=== PATIENT | male | born 1935 | race Hispanic/Latino ===

== ENCOUNTER 2018-03-19 16:58 | Outpatient (CLI) | payer OTHER ==
[2018-03-19 17:25] LABS: POTASSIUM 4.1 mmol/L (3.6-5.2)
[2018-03-19 17:57] LABS: PLATELET COUNT 148 K/uL (142-355)
== END 2018-03-19 21:33 | disposition home or self-care (01) ==
LOC: LABW 16:58
PROVIDERS: Internal Medicine
DX: E11.9 Type 2 diabetes mellitus without complications (principal); I10 Essential (primary) hypertension
CPT/HCPCS: 36415; 80053; 85027

== ENCOUNTER 2021-10-11 10:28 | Observation (INO) | payer OTHER ==
[2021-10-11] VITALS (8 sets, daily range): BP systolic 103–141; BP diastolic 55–80; TEMP 97.6–98.2; Ht 185.4 cm; Wt 84.2 kg
[~2021-10-11] VITALS: Ht 185.4 cm; Wt 84.2 kg
[2021-10-11 11:02] LABS: PLATELET COUNT 130 K/uL (142-355)
[2021-10-11 11:24] LABS: POTASSIUM 4.3 mmol/L (3.6-5.2)
[2021-10-11 11:33] LABS: PARTIAL THROMBOPLASTIN TIME 21.4 SECONDS (24.5-33.6)
[2021-10-11] MEDS ORDERED: CLOPIDOGREL75 MG PO (15:55)
[2021-10-11] MEDS ORDERED: SPIRONOLACT25 MG PO (15:56)
[2021-10-11] MEDS ORDERED: LEVO0.1T6 PO (15:56)
[2021-10-11] MEDS ORDERED: CLON1TAB18 PO (15:58)
[2021-10-11] MEDS ORDERED: MONTELUKAST SOD10 MG PO (15:59)
[2021-10-11] MEDS ORDERED: HEMOCYTE PLS PO (16:00)
[2021-10-11] MEDS ORDERED: LISI10TA11 PO (16:01)
[2021-10-11] MEDS ORDERED: TAMSULOSIN0.4 MG PO (16:02)
[2021-10-11] MEDS ORDERED: LIPITOR40 MG PO (16:02)
[2021-10-12] VITALS: BP 107/47; TEMP 97.5
[2021-10-12 04:00] VITALS: BP 97/51; TEMP 98.3
[2021-10-12 05:28] LABS: PLATELET COUNT 129 K/uL (142-355)
[2021-10-12 05:42] LABS: POTASSIUM 4.4 mmol/L (3.6-5.2)
[2021-10-12 08:00] VITALS: BP 132/75; TEMP 97.9
== END 2021-10-12 11:45 | disposition home or self-care (01) ==
LOC: ED 10:28 → MED/SURG 11:56
PROVIDERS: ADMIT Emergency Medicine; ATTEND Internal Medicine
DX: I95.1 Orthostatic hypotension (principal); I25.10 Atherosclerotic heart disease of native coronary artery without angina pectoris; I10 Essential (primary) hypertension; Z86.73 Personal history of transient ischemic attack (TIA), and cerebral infarction without residual deficits; E86.0 Dehydration; E11.65 Type 2 diabetes mellitus with hyperglycemia; S50.312A Abrasion of left elbow, initial encounter; W18.39XA Other fall on same level, initial encounter; Y92.89 Other specified places as the place of occurrence of the external cause; S00.81XA Abrasion of other part of head, initial encounter; S90.122A Contusion of left lesser toe(s) without damage to nail, initial encounter; R42 Dizziness and giddiness
CPT/HCPCS: 36415; 80053; 82533; 82948; 84484; 85027; 85610; 85730; 87635; 90472; 90715; 93005; 96360; 96361; 96372; 99220; 99284; G0378; J1815; U0003